=== PATIENT | male | born 1965 | race Caucasian/White ===

== ENCOUNTER 2023-07-30 11:49 | Outpatient (CLI) | payer BC | END 2023-07-30 11:50 | disposition home or self-care (01) | LOC: CSHRAD 11:49 | PROVIDERS: ATTEND Nurse Practitioner Family | DX: T18.5XXA Foreign body in anus and rectum, initial encounter (principal); R10.32 Left lower quadrant pain | CPT/HCPCS: 72170; 74018 ==